=== PATIENT | male | born 1955 | race Caucasian/White ===

== ENCOUNTER 2022-04-14 11:47 | Outpatient (CLI) | payer MEDICARE, BC | END 2022-04-14 11:48 | disposition home or self-care (01) | LOC: SCSMRI 11:47 | PROVIDERS: ATTEND Physician Assistant Medical | DX: K51.90 Ulcerative colitis, unspecified, without complications (principal); R74.8 Abnormal levels of other serum enzymes; K76.0 Fatty (change of) liver, not elsewhere classified | CPT/HCPCS: 74183; 82565 ==